=== PATIENT | female | born 1965 | race African-American/Black ===

== ENCOUNTER 2017-07-14 09:09 | Emergency (ER) | payer BC | END 2017-07-14 09:56 | disposition left against medical advice (07) | LOC: ERS 09:09 | DX: Z53.21 Procedure and treatment not carried out due to patient leaving prior to being seen by health care provider (principal) ==

== ENCOUNTER 2017-09-08 16:50 | Emergency (ER) | payer BC | END 2017-09-08 17:44 | disposition left against medical advice (07) | LOC: ERS 16:50 | DX: Z53.21 Procedure and treatment not carried out due to patient leaving prior to being seen by health care provider (principal) ==

== ENCOUNTER 2017-10-17 18:39 | Emergency (ER) | payer BC ==
--- NOTE | 2017-10-17 19:24 | RAD ---
RIGHT KNEE FOUR VIEW 10/17/17 HISTORY: Knee pain. COMPARISON: None. FINDINGS: There is a moderate sized joint effusion. Mild medial compartment osteoarthrosis. No acute fracture o r malalignment. IMPRESSION: Moderate joint effusion without fracture or malalignment. Moderate medial compartment osteoarthritic disease. POS: JOEY
[2017-10-17] MEDS ORDERED: Ibuprofen 200 MG TAB ONE (20:54)
== END 2017-10-17 21:04 | disposition home or self-care (01) ==
LOC: ERS 18:39
DX: M25.561 Pain in right knee (principal)